=== PATIENT | male | born 1975 | race Caucasian/White ===

== ENCOUNTER 2019-02-12 19:35 | Emergency (ER) | payer BC ==
[2019-02-12] MEDS ORDERED: Amoxicillin/Clavulanate K 875-125 MG Tab PO ONE (20:13)
[2019-02-12] MEDS ORDERED: diphenhydrAMINE 25 MG Cap PO ONE (20:13)
[2019-02-12] MEDS ORDERED: Acetaminophen/HYDROcodone 325-10 MG Tab PO ONE ×2 (20:13→20:28)
[2019-02-12] MEDS ORDERED: Hydrocortisone/Neomycin/Polymyxin B Otic Soln 10 ML Bottle EARBOTH ONE (20:15)
--- NOTE | 2019-02-12 20:21 | EDM.PDOC ---
ED HPI GENERAL MEDICAL PROBLEM - General Chief Complaint: ENT Problem Stated Complaint: EAR PAIN Time Seen by Provider: 02/12/19 20:13 Source of Information: Reports: Patient History Limitations: Reports: No Limitations - History of Present Illness INITIAL COMMENTS - FREE TEXT/NARRATIVE: Patient is a 43-year-old gentleman who presents to the emergency department this evening with a complaint of left ear pain. Patient states that approximately 1530 this afternoon he developed pain and pressure in his left ear. Patient states he does wear earplugs at work, however, they are single use. Patient denies any trauma to head, neck or ear. Does not use Q-tips, and denies recent fever, sinus or upper respiratory type symptoms. Onset: Today Onset Date: 02/12/19 Onset Time: 15:30 Duration: Hour(s): Location: Reports: Other (Left ear) Quality: Reports: Pressure Severity: Mild Improves with: Reports: None Worsens with: Reports: None Context: Denies: Trauma Associated Symptoms: Reports: No Other Symptoms. Denies: Cough, Fever/Chills, Headaches, Nausea/Vomiting, Shortness of Breath - Related Data Allergies Allergy/AdvReac Type Severity Reaction Status Date / Time No Known Drug Allergies Allergy Cannot Verified 02/12/19 19:53 Remember Home Meds: Home Meds Amoxicillin/Clavulanate K [Augmentin 875-125 MG] 1 tab PO BID #14 tablet [Rx] Past Medical History - Past Health History Medical/Surgical History: Denies Medical/Surgical History Social & Family History - Tobacco Use Smoking Status *Q: Current Every Day Smoker Years of Tobacco use: 20 Packs/Tins Daily: 0.5 - Alcohol Use Days Per Week of Alcohol Use: 4 Number of Drinks Per Day: 2 Total Drinks Per Week: 8 - Recreational Drug Use Recreational Drug Use: No ED ROS ENT - Review of Systems Review Of Systems: ROS reveals no pertinent complaints other than HPI. Constitutional: Reports: No Symptoms HEENT: Reports: Ear Pain (Left) Respiratory: Reports: No Symptoms Cardiovascular: Reports: No Symptoms Endocrine: Reports: No Symptoms GI/Abdominal: Reports: No Symptoms : Reports: No Symptoms Musculoskeletal: Reports: No Symptoms Skin: Reports: No Symptoms Neurological: Reports: No Symptoms Psychiatric: Reports: No Symptoms Hematologic/Lymphatic: Reports: No Symptoms Immunologic: Reports: No Symptoms ED EXAM, ENT - Physical Exam Exam: See Below Exam Limited By: No Limitations General Appearance: Alert, WD/WN, Mild Distress Eye Exam: Bilateral Eye: Normal Inspection Ears: Normal External Exam, TM Bulging (Left), TM Erythema (Left), Other ( Bilateral canal erythema). No: Mastoid Tenderness, TM Blood, TM Fluid, TM Perforation, Cerumen Impaction Nose: Normal Inspection, Normal Mucousa, No Blood Mouth/Throat: Normal Inspection, Normal Oropharynx Head: Atraumatic, Normocephalic Neck: Normal Inspection. No: Lymphadenopathy (L), Lymphadenopathy (R) Respiratory/Chest: No Respiratory Distress, Lungs Clear Neurological: Alert, Oriented, Normal Cognition Psychiatric: Normal Affect, Normal Mood Skin: Warm, Dry, Intact, Normal Color, No Rash Lymphatic: No Adenopathy Course - Vital Signs Last Recorded V/S: Last Vital Signs Temp 98.3 F 02/12/19 19:45 Pulse 76 02/12/19 19:45 Resp 18 02/12/19 19:45 BP 155/85 H 02/12/19 19:45 Pulse Ox 96 02/12/19 19:45 - Orders/Labs/Meds Orders: Active Orders 24 hr Category Date Time Status Acetaminophen/HYDROcodone [[place] 325-10 MG] Med 02/12/19 20:13 Once 1 tab PO ONETIME ONE Amoxicillin/Clavulanate K [Augmentin 875 MG/125 MG] Med 02/12/19 20:13 Once 1 tab PO ONETIME ONE Hydrocort/Neomycin/Polymyxin B [Cortisporin Otic Soln] Med 02/12/19 20:15 Once 1 ml EARBOTH ONETIME ONE diphenhydrAMINE [Benadryl] Med 02/12/19 20:13 Once 25 mg PO ONETIME ONE Medication Orders Neomycin/Polymyxin/Hydrocortisone (Cortisporin Otic Soln) 1 ml EARBOTH ONETIME ONE Stop: 02/12/19 20:16 Meds: Medications Generic Name Dose Route Start Last Admin Trade Name Freq PRN Reason Stop Dose Admin Neomycin/Polymyxin/Hydrocortisone 1 ml 02/12/19 20:15 Cortisporin Otic Soln EARBOTH 02/12/19 20:16 ONETIME ONE Discontinued Medications Generic Name Dose Route Start Last Admin Trade Name Freq PRN Reason Stop Dose Admin Hydrocodone Bitart/Acetaminophen 1 tab 02/12/19 20:13 [place] 325-10 Mg PO 02/12/19 20:14 ONETIME ONE Amoxicillin/Clavulanate Potassium 1 tab 02/12/19 20:13 Augmentin 875 Mg/125 Mg PO 02/12/19 20:14 ONETIME ONE Diphenhydramine HCl 25 mg 02/12/19 20:13 Benadryl PO 02/12/19 20:14 ONETIME ONE - Re-Assessments/Exams Free Text/Narrative Re-Assessment/Exam: 02/12/19 20:29 Patient afebrile, vital signs stable, pain relieved with hydrocodone and Cortisporin otic. Patient also given 875 mg Augmentin here and with a prescription. Departure - Departure Time of Disposition: 20:30 Disposition: Home, Self-Care 01 Condition: Good Clinical Impression: Otitis media Qualifiers: Otitis media type: unspecified Chronicity: acute Qualified Code(s): H66.90 - Otitis media, unspecified, unspecified ear Otitis externa Qualifiers: Otitis externa type: unspecified type Chronicity: acute Laterality: left Qualified Code(s): H60.502 - Unspecified acute noninfective otitis externa, left ear - Discharge Information Instructions: Ear Drops, Adult, [id number], Otitis Media, Adult, [id number] , Otitis Externa, [id number] Referrals: PCP,Not In Area [Primary Care Provider] - Additional Instructions: Follow-up with PCP next 2-3 days. Return to emergency department sooner if symptoms continue or worsen. Take medication as directed. - My Orders Last 24 Hours: My Active Orders 02/12/19 20:13 Acetaminophen/HYDROcodone [[place] 325-10 MG] 1 tab PO ONETIME ONE Amoxicillin/Clavulanate K [Augmentin 875 MG/125 MG] 1 tab PO ONETIME ONE diphenhydrAMINE [Benadryl] 25 mg PO ONETIME ONE 02/12/19 20:15 Hydrocort/Neomycin/Polymyxin B [Cortisporin Otic Soln] 1 ml EARBOTH ONETIME ONE - Assessment/Plan Last 24 Hours: My Active Orders 02/12/19 20:13 Acetaminophen/HYDROcodone [[place] 325-10 MG] 1 tab PO ONETIME ONE Amoxicillin/Clavulanate K [Augmentin 875 MG/125 MG] 1 tab PO ONETIME ONE diphenhydrAMINE [Benadryl] 25 mg PO ONETIME ONE 02/12/19 20:15 Hydrocort/Neomycin/Polymyxin B [Cortisporin Otic Soln] 1 ml EARBOTH ONETIME ONE Assessment:: Otitis media and externa Plan: Follow-up with PCP in 2-3 days
== END 2019-02-12 20:50 | disposition home or self-care (01) ==
LOC: KA.ED 19:35
DX: H60.502 Unspecified acute noninfective otitis externa, left ear (principal); H66.92 Otitis media, unspecified, left ear; F17.210 Nicotine dependence, cigarettes, uncomplicated
CPT/HCPCS: 99282; A9270-GY